=== PATIENT | male | born 1975 | race Caucasian/White ===

== ENCOUNTER 2016-09-14 05:44 | Day surgery (SDC) | payer MEDICARE, MEDICAID ==
[2016-09-14] VITALS (13 sets, daily range): BP systolic 119–154; BP diastolic 77–95; PULSE 75–90; RESP 12–18; O2SAT 95–100
[~2016-09-14] VITALS: Ht 170.2 cm; Wt 114.7 kg
[2016-09-14] MEDS: Lactated Ringer's 1,000 ML IV SCH ×3 (05:00→08:33)
[~2016-09-14 05:44] MED LIST: GENT30OI2 TP; HYDR2TAB28 PO; LEVO500T79 PO; MS15TCR PO
[2016-09-14] MEDS ORDERED: Ondansetron 2 mg/mL 2 mL Inj ONE (05:45)
[2016-09-14] MEDS ORDERED: Dexamethasone 4 mg/mL Inj ONE (05:45)
[2016-09-14] MEDS ORDERED: fentaNYL-PF 50 mCg/mL 2 mL Inj ONE (05:45)
[2016-09-14] MEDS ORDERED: MetoCLOpramide 5 mg/mL 2 mL Inj ONE (05:45)
[2016-09-14] MEDS ORDERED: Propofol 10,000 mCg/mL 20 mL Inj ONE (05:45)
[2016-09-14] MEDS ORDERED: VANCOMYCIN IV ONE (06:00)
[2016-09-14] MEDS ORDERED: BACITRACIN IV ONE (06:00)
[2016-09-14] MEDS ORDERED: GENTAMICIN IV ONE (06:00)
[2016-09-14] MEDS ORDERED: CeFAZolin Inj 2 GM in IV Premix 1 EACH IV ONE (06:00)
[2016-09-14] MEDS ORDERED: [UNRECOGNIZED DRUG - OTHER] IV ONE (06:00)
--- NOTE | 2016-09-14 07:19 | PCM.HPANE ---
Patient Data Surgeon Admitting Provider: Attending Provider:Gabe Sanders MD Primary Care Physician:Ronni Yi Other Provider:Kiesha Frank Anesthesia Reason for Visit Left Lower Leg Open Wound Ht/WT & BMI Height (Feet): 5 Height (Inches): 7 Weight (Kilograms): 114.7 Body Mass Index 39.00 Allergies Coded Allergies: No Known Allergies (Verified , 09/13/16) Past Anesthesia History Anesthesia History: Denies:: Abnormal Airway, Anesthesia Reactions, Difficult Intubation, Fam Anesthesia Reaction, Fam Malignant Hypertherm, Malignant Hyperthermia Diabetes History Hx Diabetes?: No MRSA MRSA: Yes (wounds) Medications Home Meds Incl Beta Angel: No Reported Medications Gentamicin Sulfate 15 Gm Oint...g.15 Gm TP DIRECTED PRN LEG WOUNDS 09/13/16 Levofloxacin 500 Mg [id number] Mg PO DAILY 09/13/16 Morphine Sulfate ER (MS Contin)15 Mg Tablet.er15 Mg PO BID Ref 0 09/13/16 Hydromorphone 2 Mg Tablet2 Mg PO Q4H PRN Pain Ref 0 09/13/16 Discontinued Reported Medications Rivaroxaban (Xarelto)20 Mg Hmljdt28 Mg PO DAILY 09/13/16 Multivitamin (Multi Vitamin Daily)1 Each Tablet1 Each PO DAILY Ref 0 08/31/14 Hydrocodone-Acetaminophen 5-325 mg 1 Each Tablet1 Each PO Q4 PRN For Pain Ref 0 08/31/14 Furosemide-Expunged Drug, Do Not Renew! 20 Mg Nuztqr02 Mg PO DAILY 05/27/13 Rivaroxaban (Xarelto)20 Mg Lurxkf27 Mg PO DAILY STARTED 12-08-12 04/06/13 Potassium Chl-Expunged Drug, Do Not Renew! (X-XQX-Pwmdvlop Drug, Do Not Renew!) 10 Meq Tabsr10 Meq PO DAILYWM TAKE WITH FOOD 09/01/12 Morphine-Expunged Drug, Do Not Renew! (Morphine ER-Expunged Drug, Do Not Renew!) 15 Mg Tablet.er15 Mg PO BID 03/28/12 History History of ENT Problems?: Yes HEENT History: Denies:: Abnormal Airway Cataracts Difficult Intubation Dysphagia Hearing Problem Sinus Problem TMJ Teeth Condition: Broken Teeth Tooth Decay Hx of Heart Problems?: Yes Cardiovascular History: Positive for:: Chest Pain (06/29, w/ SOB ) Edema (LEGS COMPRESSION W/ PROFORE WRAPS,ELEVATION & PUMP) Peripheral Vascular (VENOUS STASIS LE-NO LONGER ON ANY TYPE OF ANTICOAGULATION ) Thrombophlebitis (HX OF BLOOD CLOTS LEGS,SVC-LAST CLOTTING EPISODE ???2011) Denies:: AICD Abdominal Aortic Aneurism Atrial Fibrillation Cardiac Surgery Congestive Heart Failure Heart Murmur Hypertension Irregular Heartbeat Pacemaker Rheumatic Fever Valvular Heart Disease Other Cardiac History: FACTOE V LEIDEN DEFICIENCY; LUPUS AANITCOAGULANT POSITIVITY; SUBHASH POSITIVITY Hx of Respiratory Problem?: Yes Respiratory History: Positive for:: Dyspnea (related to thrombosis activity?) Pulmonary Embolism Denies:: Asthma COPD Chest Surgery Cough Emphysema Hemoptysis Oxygen Administration Pneumonia Tuberculosis Use of C-PAP Machine (SNORES) Hx Neurologic Problems?: No Neurological History: Denies:: Alzheimer's Disease CVA Dementia Dizziness Headaches Multiple Sclerosis Parkinson's Disease Seizures Hx of GI Problems?: Yes Gastrointestinal History: Positive for:: Gastroesphageal Reflux Heartburn Denies:: Cirrhosis Diverticulitis Gastrointestinal Bleeding Hepatitis Hiatal Hernia Rectal Bleeding Hx of Problems?: No Genitourinary History: Denies:: HX of Hemodialysis Kidney Stones Urinary Tract Infection HX of Peritoneal Dialysis: No Male Hx: Denies:: Prostate Problems Scrotal Mass Testicular Surgery Skin History: Positive for:: History 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 ) Hx Any Other Health Problems?: Yes Other History: Positive for:: Hospitalization (multiple for chest pain/SOB and bilat DVTs) Denies:: Cancer Endocrine Disease Thyroid Disease History Blood Transfusions: Denies:: Blood Transfuse Reaction Blood Transfusions (BLOOD CLOTTING DISORDER SINCE AGE 14) Hx Diabetes: No Hx Alcohol Use: Yes (rarely)Hx Substance Use: No Smoking Status: Former Smoker Have You Smoked inLast 12 mo: No Stop/Bang Treated for Sleep Apnea?: No Do You Have a CPAP Machine?: No S-Snoring: Do You Snore Loudly: Yes T-Tired: feel tired, fatigued: No O-Obsered: Observed not breath: No P-Blood Pressure: treated: No B- Body Mass Index > 35 kg/m2: Yes A- Age over 50: No N- Neck Large Circumference: Yes G- Gender Male: Yes GURVINDER Total Score: 4 GURVINDER Risk Assessment: Low Risk, <3 Yes Risk Assessment Category Category 1A: Patient has history of documented sleep apnea, and HAS NOT received any narcotic, sedative or anesthesia administration during this stay. Category 1B: Patient has history of documented sleep apnea, and HAS received any narcotic , sedative or anesthesia administration during this stay Category 2: Patient has SUSPECTED Obstructive Sleep Apnea, and HAS received any narcotic , sedative or anesthesia administration during this stay. Category 3: Patient has SUSPECTED Obstructive Sleep Apnea and HAS NOT received narcotic, sedative or anesthesia administration during this stay. Category 4: Outpatient in Procedural Areas with known sleep apnea or who screen positive for High Risk via the STOP/BANG questionnaire. Exam Exam Vital Signs Vital Signs Date Time Temp Pulse Resp B/P Pulse Ox O2 Delivery O2 Flow Rate FiO2 09/14/16 06:01 36.7 75 18 127/84 98 Room Air General Appearance: Oriented X3 HEENT/AIRWAY: MP 2 Lungs: Normal Air Movement Heart: Regular Rate/Rhythm Meds/Labs/Diagnostics Admission Meds Current Medications Lactated Ringer's (Lr) 1,000 ml @ 120 mls/hr Q8H20M IV Last administered on t 05:52; Start 09/14/16 at 05:00; Stop 09/14/16 at 13:19 Plan Impression Patient chart reviewed, patient interviewed and anesthestic plan with risks, benefits, and alternatives discussed, and informed consent obtained. NPO Status: 2130 09/13/16 ASA Physical Status: ASA3 Severe Disease Anesthetic Plan: GA Bene/Risks/Altern/Consents: Yes HP Complete Prior to Induction: Yes Natalio Grimm MD Sep 14, 2016 07:19
[2016-09-14] MEDS ORDERED: Bupivacaine-MPF 0.25%/EPI 30 mL Inj INJ ONE ×2 (08:37→09:17)
[2016-09-14] MEDS ORDERED: Mineral Oil-Light (Sterile) 25 mL TOPICAL ONE (08:38)
[2016-09-14] MEDS ORDERED: Lactated Ringer's 1,000 ML IV SCH (10:11)
[2016-09-14] MEDS ORDERED: Lactated Ringer's 500 ML IV PRN (10:11)
[2016-09-14] MEDS ORDERED: Ondansetron 2 mg/mL 2 mL Inj IVPUSH PRN ×2 (10:15→12:25)
[2016-09-14] MEDS ORDERED: Phenylephrine 10,000 mCg/mL Inj IVPUSH PRN (10:15)
[2016-09-14] MEDS ORDERED: MetoCLOpramide 5 mg/mL 2 mL Inj IVPUSH PRN ×2 (10:15→12:30)
[2016-09-14] MEDS ORDERED: Dexamethasone 4 mg/mL Inj IVPUSH PRN (10:15)
[2016-09-14] MEDS ORDERED: EPHEDrine Sulfate 50 mg/mL Inj IVPUSH PRN (10:15)
[2016-09-14] MEDS: fentaNYL-PF 50 mCg/mL 2 mL Inj IVPUSH PRN ×2 (10:39→10:55)
[2016-09-14] MEDS: HYDROmorphone 1 mg/mL Inj IVPUSH PRN ×2 (11:05→11:16)
[2016-09-14] MEDS ORDERED: Lactated Ringer's 1,000 ML IV ONE (11:24)
--- NOTE | 2016-09-14 11:37 | NUR ---
Wound Care Pt seen for NPWT application to his left lower leg today in operating room after application of a split thickness skin graft by Dr Morgan Sanders. Adaptic placed over graft as interface between blackfoam then pressure was brought up to 100 mmHg on the continuous setting, an excellent seal was obtained. Leg was then dressed with a 4 layer multi compression wrap. Graft harvest site was dressed with a xeroform dressing covered by clear drape with an egress hole distally over which was placed an absorbent dressing. Absorbent dressing can be changed PRN but xeroform and clear drape are not to be disturbed. Thigh was then wrapped with an david wrap. Patient has a home going NPWT unit in his room that can be switched over at discharge from the hospital unit without disturbing the dressing. Patient is to follow up at the wound center for NPWT dressing change in 5-6 days.
--- NOTE | 2016-09-14 11:44 | OP ---
[address] [address] OPERATIVE REPORT PATIENT: GERARD SPRAGUE : 1975 MR#: [id number] ADMIT: 09/14/2016 JOB ID: [id number] DATE OF SURGERY: 09/14/2016 PLASTIC SURGERY OPERATIVE REPORT: PREOPERATIVE DIAGNOSIS(ES): 1. Left lower extremity wound. 2. History of Sweet's syndrome. POSTOPERATIVE DIAGNOSIS(ES): 1. Left lower extremity wound. 2. History of Sweet's syndrome. PROCEDURES PERFORMED: 1. Debridement of left lower extremity wounds, 17 x 5 cm. 2. Split-thickness skin grafting to left lower extremity wound from left lateral thigh donor, 85 sq cm. SURGEON: Gabe Sanders MD. RETORT FURNACE OPERATOR: None. ANESTHESIA: General anesthesia with laryngeal mask airway. 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 He has had reasonable nonsurgical healing of his wounds and presents today for elective debridement and skin grafting. FINDINGS: The wound was heavily covered with fibrinous debris overlying a fairly thick bed of robust granulation tissue. There were no signs or symptoms of localized wound contamination or infection. ESTIMATED BLOOD LOSS: 50 cc. COMPLICATIONS: None. DRAINS: None. SPECIMENS: 1. Left lower extremity wound tissue, sent for culture. 2. Left lower extremity wound and skin, sent for permanent pathology. ANTIBIOTICS: The patient had been on oral preoperative levofloxacin and also received 2 grams of IV cefazolin prior to the beginning of the procedure. FLUIDS: Crystalloid. INFORMED CONSENT: I had a thorough discussion with the patient prior to surgery about the risks, benefits and alternatives to the procedure. In terms of risks, I specifically mentioned bleeding, infection, damage to adjacent structures, need for further procedure, scar, pain, undesired cosmesis, heart attack, stroke or . We also talked about the increased risk of graft loss in this patient given his primary diagnosis and comorbidities. DESCRIPTION OF PROCEDURE: After informed consent was obtained and verified, the patient is brought to the operating theater and positioned supine upon the operating table. He then had induction of general anesthesia and placement of laryngeal mask airway. Prior to induction, he did have a left-sided femoral nerve block done by anesthesia. All bony prominences were assessed to make sure there were well-padded. The left lower extremity was shaved using surgical clippers. The left lower extremity was then prepped with ChloraPrep above the knee and Povidone-iodine below the knee and draped in a standard sterile surgical fashion. I also scrubbed the wound with a surgical scrub brush with PCMX detergent prior to prepping. Preoperative verification and checklist was then done according to protocol. We began with debridement of the left lower extremity. This was done both mechanically with a pair of Adson forceps and sharply using a #10 blade. The wound edges were freshened by excising some of the contracted atrophic wound marginal skin using a #10 scalpel. Hemostasis was achieved using electrocautery. The wound was then measured and a template created and transferred to the left anterolateral thigh. This was marked on the skin and the 2 inch guard was chosen for the dermatome. The planned area of skin grafting was then infiltrated with 0.25% bupivacaine. Once this was done, the Myagi dermatome was used for graft harvest and set to 0.018 of an inch. An 18 cm strip was harvested without difficulty. It was meshed 1-1.5 and laid over the wound and trimmed to fit. It was then sewn into place using 4-0 chromic in a simple interrupted and simple running fashion. Harvey Hernández from the [facility] was then on hand to apply a left lower extremity Wound VAC using a wound contact layer of Adaptic with a black GranuFoam sponge set to 100 mmHg with good seal. A four-layer compression wrap was then applied. The left thigh wound was then dressed with Xeroform and an occlusive dressing and fenestrated to allow for drainage with placement of an ABD pad to catch fluid egress. The patient was then woken from general anesthesia. Sponge, needle and instrument counts were correct at the end of the case. No complications were noted. Postoperative debriefing was done according to protocol. DISPOSITION: The patient was successfully extubated and taken to the postanesthesia recovery area with normal stable vital signs. PLAN: The patient will be admitted overnight for pain control. ZAK
--- NOTE | 2016-09-14 11:52 | PCM.ANEP1 ---
Post Anesthesia Phase 1 PACU Phase 1 Assessment Vital Signs Vital Signs Date Time Temp Pulse Resp B/P Pulse Ox O2 Delivery O2 Flow Rate FiO2 09/14/16 11:35 85 12 146/82 95 Room Air 09/14/16 11:30 89 13 154/91 96 Room Air 09/14/16 11:15 36.5 84 15 150/77 96 Room Air 09/14/16 11:00 87 12 149/95 97 Room Air 09/14/16 10:50 89 12 147/90 100 Room Air 09/14/16 10:45 90 15 139/77 99 Room Air 09/14/16 10:40 90 12 133/95 99 Simple Mask 8 09/14/16 10:36 36.7 89 12 126/79 100 Simple Mask 8 09/14/16 06:01 36.7 75 18 127/84 98 Room Air Anesthetic Administered: GA Level of Alertness: Awake, talking Pain: Yes Nausea or Vomiting: No Lungs: Normal Air Movement Natalio Grimm MD Sep 14, 2016 11:52
--- NOTE | 2016-09-14 11:52 | PCM.ANEP2 ---
Post Anesthesia Evaluation ASA/CMS Post Anesthesia VS in Patient's Normal Range?: Yes Resp Stable; Airway Patent?: Yes CV Function & Hydration Stable: Yes Mental Status Recovered?: Yes Pain control Satisfactory?: Yes N/V Control Satisfactory?: Yes Natalio Grimm MD Sep 14, 2016 11:52
--- NOTE | 2016-09-14 12:17 | NUR ---
PostOp Pt arrived from PACU to OSC unit at 1145; arrived via gurney and was able to scoot self over to bed. A&Ox3, MURPHY - gen weakness BLE L>R, Dressing to BLE CDI, s/p LLE skin graft and wound vac placement - CDI, No direct observation to surgical sites, Wound vac in place and continuous at 100mmhg - no output, Pt oriented to room and call light in reach, present in room with belongings, IV patent and SL until Med orders entered into system, Pt tolerating PO at this time, Pain tolerable at 4/10 at time of arrival. Stated 3/10 would be considered as 0/10 for other patients. Chronic pain and wound issues d/t venous stasis/clotting factor issues - pt with multiple surgeries to BLE because of this. Care continues.
[2016-09-14] MEDS ORDERED: Magnesium Hydroxide 10 mL Oral Concentration PO PRN (12:25)
[2016-09-14] MEDS ORDERED: diphenhydrAMINE 25 mg Capsule PO PRN (12:25)
[2016-09-14] MEDS ORDERED: HYDROmorphone 1 mg/mL Inj IVPUSH PRN (12:40)
[2016-09-14] MEDS: Morphine ER 15 mg (MS Contin) Tablet PO SCH (13:07)
[2016-09-14] MEDS: D5 0.9% NaCl + KCl 20 mEq/L 1,000 ML IV SCH ×2 (13:07→20:21)
[2016-09-14 14:39] LABS: BASOPHILS % (AUTO) 0.1 % (0-3); EOSINOPHILS % (AUTO) 0 % (0-5); MONOCYTES % (AUTO) 1.4 % (4-12); Mean Corpuscular Hemoglobin 30.5 pg (27.0-35.0); Mean Corpuscular Volume 93.8 fL (81-100); NEUTROPHILS % (AUTO) 87.3 % (40-74); Platelet Count 446 bil/L (150-400)
[2016-09-14] MEDS: Heparin 5,000 Unit/mL Inj SUBQ SCH (16:02)
[2016-09-14] MEDS: HYDROcodone-APAP 5-325 mg Tablet PO PRN ×2 (16:02→20:20)
[2016-09-14] MEDS ORDERED: levoFLOXacin 500 mg Tablet PO SCH (17:00)
[2016-09-15 00:08] VITALS: BP 115/74; PULSE 86; RESP 14; O2SAT 97
[2016-09-15] MEDS: Heparin 5,000 Unit/mL Inj SUBQ SCH ×2 (00:12→08:31)
[2016-09-15] MEDS: HYDROcodone-APAP 5-325 mg Tablet PO PRN ×4 (00:12→12:23)
[2016-09-15] MEDS ORDERED: diphenhydrAMINE 25 mg Capsule PO PRN (01:32)
[2016-09-15] MEDS: D5 0.9% NaCl + KCl 20 mEq/L 1,000 ML IV SCH ×2 (04:23→12:20)
[2016-09-15 05:40] VITALS: BP 109/73; PULSE 74; RESP 16; O2SAT 98
--- NOTE | 2016-09-15 05:49 | NUR ---
NOC shift PT has had a good night. Pain level has not been above a 5 this shift. Pain has been managed with 2 norco and 2mg dilaudid po every 4 hours. Pt likes to take the 2 different meds versus a higher dose of the dilaudid. IV fluids are still infusing over noc as pt has not taken a ton of po. He has denied nausea this shift. Dressing to L upper thigh donor site intact with acewrap in place. BLE compression stockings are on. LLE wound vac intact at 100mm of suction. No drainage in canister. PT has portable vac in room for home mgmt. Voiding per urinal. at bedside. Afebrile. Will ctm.
[2016-09-15] MEDS: Morphine ER 15 mg (MS Contin) Tablet PO SCH (08:31)
[2016-09-15] MEDS ORDERED: HYDR2TAB27 PO (11:49)
[2016-09-15] MEDS ORDERED: HYDR-3740 PO (11:49)
--- NOTE | 2016-09-15 11:52 | PCM.DIMED ---
Discharge Instructions Date of Service Sep 15, 2016 Dates of Hospitalization 09/14/2016 Discharge Diagnosis Discharge Diagnosis Bilateral lower extremity wounds Postphlebitic Syndrome. Medication Instructions New pain medication prescriptions given, expected to need 1 week, then wean off. Call your provider Fever or Chills, Shortness of breath, Bleeding, Vomitting, Weakness (unilateral) , Other (Wound VAC failure >2 hours) Patient Instructions Follow up at Wound Center on 09/18/16. for Wound VAC change and 09/21/16 for Wound VAC discontinuation and dressing change. Nahomy Mccarthy DPM Sep 15, 2016 11:51
--- NOTE | 2016-09-15 12:23 | PCM.DC.POD ---
Discharge Summary Date of Service Sep 15, 2016 Date of Hospital Admission: Date of Surgery: Sep 14, 2016 Date of Discharge: Sep 15, 2016 Reason for Hospitalization: Postop pain control, nonweightbearing. monitoring for Wound VAC failure before patient can be safely discharge on home negative pressure system. 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 Procedures Performed: PROCEDURES PERFORMED: 1. Debridement of left lower extremity wounds, 17 x 5 cm. 2. Split-thickness skin grafting to left lower extremity wound from left lateral thigh donor, 85 sq cm. Hospital Course: Negative pressure wound therapy functioning well. Pain well controlled with new regiment overnight. Compliant with care. 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 Problems: (1) Postphlebetic syndrome with inflammation Status: Chronic ICD Code: I87.029 (2) Venous stasis ulcer of left lower extremity Status: Chronic ICD Code: I83.029 (3) Venous stasis ulcer of right lower extremity Status: Chronic ICD Code: I83.019 Discharge Instructions: Wound VAC therapy for one week postoperatively. Follow up at Wound Center on Saturday and Saturday, September 18 for Wound VAC change, September 21 for Wound VAC removal and dressing change. Continue oral antibiotics until discontinued by physician. New refill given today. Use your new medication regiment as prescribed for one week, then wean off to preop levels or lower when possible. Minimal activity at home until Saturday. Report any malfunction of the VAC greater than 2 hours, as instructed. Hydrocodone-Acetaminophen 10-325 mg (Hydrocodone-Acetaminophen 10-325 mg) 1 Each Tablet 1 TABLET PO Q4H PRN PRN For Pain Hydromorphone (Dilaudid) 2 Mg Tablet 2 MG PO Q4H PRN PRN Pain Levofloxacin (Levofloxacin) 500 Mg Tablet 500 MG PO DAILY Morphine Sulfate ER (MS Contin) 15 Mg Tablet.er 15 MG PO BID Nahomy Mccarthy DPM Sep 15, 2016 11:46
--- NOTE | 2016-09-15 13:01 | NUR ---
DISCHARGE Patient had no emesis overnight, mild nausea in am but was able to have bites of breakfast and liquids and able to keep it down. Pain managed with norco 2 tabs and dilaudid 2mg Q4H for breakthrough pain. Patient's wound vac was changed from hospital machine to portable machine by Dr. Mccarthy. Machine working properly. Patient got dressed with minimal assistance from girlfriend. IV catheter was removed from left forearm, dressing applied. Reviewed discharge paperwork with patient and girlfriend, gave hard copy Rx for pain medications. Patient aware of follow up appointments with wound care clinic in the next week. Stood and transferred into wheelchair and was taken outside to personal vehicle. Patient left with all personal belongings.
--- NOTE | 2016-09-16 10:28 | NUR ---
Social Work: Patient departed hospital before SW could assess. Pt is independent at base. Merly Barone MSW
--- NOTE | 2016-09-17 15:28 | PATH ---
SURGICAL PATHOLOGY Attending Physician:Gabe Sanders MD CASE STATUS: Signed Out PATIENT NAME: GERARD SPRAGUE PID: [id number] : 1975 DATE COLLECTED:09/14/2016 16:31 SPECIMEN: Skin, biopsy CLINICAL HISTORY: LEFT LOWER LEG OPEN WOUND 1).LEFT LOWER EXTREMITY WOUND FINAL DIAGNOSIS: 1.LEFT LOWER LEG EXTREMITY WOUND: SKIN WITH ULCERATION, GRANULATION TISSUE, SCARRING, AND OLD HEMORRHAGE. NEGATIVE FOR VASCULITIS AND MALIGNANCY. ICD10 CODE L97.9 GROSS DESCRIPTION: The specimen is received in formalin, labeled with the patient's name, sublabeled as left lower leg wound and consists of multiple unoriented strips of skin with subcutaneous tissue (9.0 x 3.5 x 0.8 cm in aggregate, ranging 1.7 x 0.6 x 0.1 cm-7.2 x 0.7 x 0.3 cm). The skin is bright white smooth and shiny. The subcutaneous tissue is fibrous and hemorrhagic. Ink code: black-resection margin. Section code: (A) strips of skin, food service sales representatives. 09/15/16 JM MICRO DESCRIPTION: See diagnosis. ICD-9 CODES: CPT CODES: 1: 40876 Electronically Signed Out Rosi Holguin MD [facility] Pathology [facility] [address], [place] [address] Technical component performed at [facility], [facility] [address], [place], [address]
== END 2016-09-15 12:45 | disposition home or self-care (01) ==
LOC: SAS 05:44 → OSC 11:53 → SAS 09-15 12:45
PROVIDERS: ATTEND Plastic Surgery
DX: I83.022 Varicose veins of left lower extremity with ulcer of calf (principal); L97.229 Non-pressure chronic ulcer of left calf with unspecified severity; L98.2 Febrile neutrophilic dermatosis [Sweet]; I87.012 Postthrombotic syndrome with ulcer of left lower extremity; D68.51 Activated protein C resistance
CPT/HCPCS: 15002; 15100; 36415; 76942; 80048; 85025; 87070; 87075; 87077; 87186; 87205; 88305; 97606; A6550; J0690; J1100; J1170; J1580; J1644; J2405; J2765; J3010; J3370; J7030; J7120